=== PATIENT | male | born 1960 | race Caucasian/White ===

== ENCOUNTER → 2018-03-27 17:51 | Outpatient (REF) | payer OTHER, SELFPAY ==
[2018-03-27 18:53] LABS: Body Fluid Tot Nucleated Cells 349 /uL
[2018-03-27 19:12] LABS: Body Fluid Red Blood Cells < 1000 /uL
[2018-03-27 19:46] LABS: Body Fluid Appearance CLEAR; Body Fluid Clotted? NO CLOTS PRESENT; Body Fluid Color YELLOW
[2018-03-27 19:57] LABS: Mononuclear WBC Body Fluid 30 %; Polynuclear WBC Body Fluid 64 %
[2018-03-27 20:17] LABS: Other Cells Body Fluid 6 %
== END ==
LOC: LAB 17:51
PROVIDERS: Visit Provider Orthopaedic Surgery
DX: M25.462 Effusion, left knee (principal); M23.42 Loose body in knee, left knee
CPT/HCPCS: 87070; 87075; 87205; 89051; 89060

== ENCOUNTER → 2018-04-16 09:43 | Outpatient (CLI) | payer OTHER, SELFPAY ==
--- NOTE | 2018-04-16 | DI.MRI.S_ITS ---
PROCEDURE: MR KNEE LT WO CON INDICATIONS: PAIN IN LEFT KNEE TECHNIQUE: Noncontrast sagittal PD fast spin echo and T2 fast spin echo with fat saturation, sagittal 3-D FLASH with fat saturation; coronal T1 spin echo and PD fast spin echo with fat saturation, and axial PD fast spin echo with fat saturation through the knee. COMPARISON: None. FINDINGS: Image quality: Excellent. Menisci: There is peripheral displacement of medial meniscus bowing medial collateral ligament. Subtle signal abnormality involving posterior horn of medial meniscus is seen extending to inferior articulating surface suspicious for subtle oblique tear involving posterior horn medial meniscus. There is no evidence of focal lateral meniscal tear. The meniscal root ligaments appear intact. Cruciate ligaments: The anterior and posterior cruciate ligaments appear intact. Medial structures: The medial collateral ligament appears intact. The posterior oblique ligament, semimembranosus tendon insertions, oblique popliteal ligament, and meniscocapsular junction appear intact. Visualized portions of the pes anserinus tendons appear normal. No abnormal bursal fluid. Lateral structures: The lateral collateral ligament, long and short heads of the biceps femoris tendon appear intact. The popliteus tendon appears normal; the popliteofibular ligament appears intact. The posterosuperior and anteroinferior popliteomeniscal fascicles appear intact. The arcuate and fabellofibular ligaments appear intact, on either side of the lateral inferior geniculate artery. Iliotibial band appears normal. Anterior structures: The quadriceps tendon appears intact. Tendinosis involving distal patellar tendon near its tibial insertion is seen. No evidence of patella tendon rupture. Patellar alignment is normal. No femoral trochlear dysplasia or ventral trochlear prominence. No edema in the infrapatellar fat pad. 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 Moderate chondromalacia patella involving apex and lateral facet of patella cartilage is also seen. Joint space: There is moderate amount of joint effusion, no gross loose body. No Lozano's cyst. Normal appearing synovial plicae are incidentally noted. IMPRESSION: 1. 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 No fracture or dislocation. Moderate chondromalacia patella as above. Moderate amount of joint effusion, no gross loose body. 2. Suggestion of subtle focal oblique tear involving posterior horn of medial meniscus extending to inferior articulating surface. No evidence of focal lateral meniscal tear. Peripheral displacement of medial meniscus bowing medial collateral ligament. 3. Tendinosis involving distal patellar tendon near its insertion on proximal tibia. No evidence of patella tendon rupture. 4. Cruciate ligaments are intact. Dictated by: Raul Crandall M.D. on 04/16/2018 at 11:53 Approved by: Raul Crandall M.D. on 04/16/2018 at 12:00
== END ==
PROVIDERS: PCP Family Medicine; Visit Provider Orthopaedic Surgery
DX: M25.562 Pain in left knee (principal); M17.12 Unilateral primary osteoarthritis, left knee; M22.42 Chondromalacia patellae, left knee; M25.462 Effusion, left knee
CPT/HCPCS: 73721

== ENCOUNTER → 2019-03-13 19:17 | Outpatient (CLI) | payer OTHER, SELFPAY ==
[2019-03-13 19:38] LABS: Influenza A and B by PCR Rapid Negative (Negative)
== END ==
PROVIDERS: PCP Family Medicine; Visit Provider Physician Assistant
DX: R68.89 Other general symptoms and signs (principal)
CPT/HCPCS: 87400; 87502

== ENCOUNTER → 2020-11-28 12:51 | Outpatient (CLI) | payer OTHER, SELFPAY ==
--- NOTE | 2020-11-28 12:52 | DI.RAD.S_ITS ---
PROCEDURE: XR SCAPULA LT INDICATIONS: l shoulder pain TECHNIQUE: 3 views of the scapula were acquired. COMPARISON: None. FINDINGS: Bones: No fractures or dislocations. No suspicious bony lesions. Visualized ribs appear intact. Soft tissues: Overlying soft tissues appear normal. IMPRESSION: Mild AC joint osteoarthritis. No trauma found. Dictated by: Andrzej Wolfe M.D. on 11/28/2020 at 13:48 Approved by: Andrzej Wolfe M.D. on 11/28/2020 at 13:48
--- NOTE | 2020-11-28 12:52 | DI.RAD.S_ITS ---
PROCEDURE: XR SHOULDER LT MIN 2V INDICATIONS: Shoulder pain TECHNIQUE: 3 views of the shoulder were acquired. COMPARISON: None. FINDINGS: Bones: No fractures or dislocations. No suspicious bony lesions. Visualized ribs appear intact. Soft tissues: No suspicious soft tissue calcifications. IMPRESSION: Mild arthritic change at the AC joint. No fracture found. No subluxation or dislocation. Dictated by: Andrzej Wolfe M.D. on 11/28/2020 at 12:47 Approved by: Andrzej Wolfe M.D. on 11/28/2020 at 12:48
--- NOTE | 2020-11-28 13:45 | DI.RAD.S_ITS ---
PROCEDURE: XR CHEST 2V INDICATIONS: shortness of breath TECHNIQUE: 2 views of the chest were acquired. COMPARISON: None. FINDINGS: Surgical changes and devices: None. Lungs and pleura: Lungs are clear. No pleural effusions or pneumothorax. Mediastinum: Mediastinal contours are normal. Heart size is normal. Bones and chest wall: No suspicious bony abnormalities. Soft tissues appear unremarkable. IMPRESSION: Normal for age, source of current shortness of breath symptoms is not seen. Dictated by: Andrzej Wolfe M.D. on 11/28/2020 at 13:57 Approved by: Andrzej Wolfe M.D. on 11/28/2020 at 13:57
--- NOTE | 2020-11-28 13:45 | DI.RAD.S_ITS ---
PROCEDURE: XR RIBS LT 2V INDICATIONS: shortness of breath TECHNIQUE: 2 views of the left ribs were acquired. COMPARISON: [facility], CR, XR CHEST 2V, 11/28/2020, 13:43. FINDINGS: Surgical changes and devices: None. Bones and chest wall: No fractures or dislocations. No suspicious bony lesions. Overlying soft tissues appear unremarkable. Lungs and pleura: The visualized lung appears clear. No pleural effusions or pneumothorax are visible. IMPRESSION: No acute disease, source of shortness of breath is not identified. No rib trauma found. No pneumothorax. Depending on the clinical status follow-up by CT scanning may become necessary. Dictated by: Andrzej Wolfe M.D. on 11/28/2020 at 13:54 Approved by: Andrzej Wolfe M.D. on 11/28/2020 at 13:57
== END ==
PROVIDERS: PCP Internal Medicine; Referring Provider Physician Assistant; Visit Provider Physician Assistant
DX: M25.512 Pain in left shoulder (principal); R06.02 Shortness of breath; M19.012 Primary osteoarthritis, left shoulder
CPT/HCPCS: 71046; 71100; 73010; 73030

== ENCOUNTER → 2022-12-01 07:33 | Outpatient (CLI) | payer OTHER, SELFPAY ==
--- NOTE | 2022-12-01 | DI.RAD.S_ITS ---
PROCEDURE: XR SHOULDER LT MIN 2V INDICATIONS: Pain in left shoulder TECHNIQUE: 3 views of the shoulder were acquired. COMPARISON: [facility], CR, XR RIBS LT 2V, 11/28/2020, 13:43. [facility], CR, XR CHEST 2V, 11/28/2020, 13:43. [facility], CR, XR SHOULDER LT MIN 2V, 11/28/2020, 12:56. FINDINGS: Bones: No fractures or dislocations. No suspicious bony lesions. Visualized ribs appear intact. Mild AC joint hypertrophy. Soft tissues: No suspicious soft tissue calcifications. IMPRESSION: No acute osseous abnormality. If symptoms persist, follow-up radiographs and/or CT or MRI may be helpful for further evaluation. Dictated by: Aubrey Bhatt M.D. on 12/01/2022 at 10:00 Approved by: Aubrey Bhatt M.D. on 12/01/2022 at 10:03
== END ==
PROVIDERS: PCP Physician Assistant; Referring Provider Physician Assistant; Visit Provider Physician Assistant
DX: M25.512 Pain in left shoulder (principal)
CPT/HCPCS: 73030

== ENCOUNTER → 2022-12-03 08:41 | Outpatient (CLI) | payer OTHER, SELFPAY ==
--- NOTE | 2022-12-03 09:12 | DI.MRI.S_ITS ---
PROCEDURE: MR SHOULDER LT WO CON INDICATIONS: CHRONIC LEFT SHOULDER PAIN TECHNIQUE: Noncontrast oblique coronal T2 fast spin echo with fat saturation, oblique sagittal T1 spin echo and T2 fast spin echo with fat saturation, axial T1 spin echo and T2 fast spin echo with fat saturation through the shoulder. COMPARISON: [facility], CR, XR SHOULDER LT MIN 2V, 12/01/2022, 7:40. FINDINGS: Image quality: Excellent. Rotator cuff: Mild T2 signal elevation diffusely throughout the supraspinatus and infraspinatus tendons at the humeral insertion sites extending the musculotendinous junctions, indicating tendinopathy. High-grade articular surface and intrasubstance tearing of the mid/anterior supraspinatus tendon at the humeral insertion site extending to the musculotendinous junction measuring 10 mm anteroposterior. Low-grade intrasubstance tearing of the mid/posterior supraspinatus tendon as well as the mid and anterior infraspinatus tendon at the humeral insertion site extending to the musculotendinous junction. Subscapularis and teres minor tendons are intact. No rotator cuff atrophy. Bones and bursae: No bone marrow contusions or fractures. Moderate acromioclavicular joint degeneration. The acromion demonstrates conventional anatomy, without an os acromiale. No pathologic subacromial-subdeltoid or subcoracoid bursal fluid is present. Capsule and soft tissues: There is undercutting of the mid posterior labrum. The long head of the biceps tendon demonstrates normal location and partial-thickness tearing. The rotator interval appears normal, without fibrosis. The coracohumeral ligament is normal in thickness. IMPRESSION: 1. Supraspinatus and infraspinatus tendinopathy with superimposed high-grade and partial-thickness low-grade tearing as described above. 2. Acromioclavicular joint osteoarthritis. 3. Partial thickness biceps tendon tearing. 4. Possible posterior labral tearing. Dictated by: Diane Murphy M.D. on 12/04/2022 at 11:01 Approved by: Diane Murphy M.D. on 12/04/2022 at 11:02
== END ==
PROVIDERS: PCP Physician Assistant; Referring Provider Physician Assistant; Visit Provider Physician Assistant
DX: M75.112 Incomplete rotator cuff tear or rupture of left shoulder, not specified as traumatic (principal); S46.112A Strain of muscle, fascia and tendon of long head of biceps, left arm, initial encounter; M19.012 Primary osteoarthritis, left shoulder; M25.512 Pain in left shoulder
CPT/HCPCS: 73221

== ENCOUNTER → 2023-06-21 | Outpatient (CLI) | payer OTHER, SELFPAY ==
--- NOTE | 2023-06-21 14:44 | DI.MRI.S_ITS ---
PROCEDURE: MR SHOULDER RT WO CON INDICATIONS: RIGHT SHOULDER PAIN TECHNIQUE: Noncontrast oblique coronal T2 fast spin echo with fat saturation, oblique sagittal T1 spin echo and T2 fast spin echo with fat saturation, axial T1 spin echo and T2 fast spin echo with fat saturation through the shoulder. COMPARISON: [facility], MR, MR SHOULDER LT WO CON, 12/03/2022, 8:55. FINDINGS: Image quality: Excellent. Rotator cuff: There is high-grade partial-thickness tear of the distal supraspinatus tendon at the humeral attachment (series 8, image 13-15). There is intermediate-grade partial-thickness tear of the posterior fibers of the distal subscapularis tendon involving both articular and bursal surfaces, as well as the footprint. Low-grade partial-thickness tear of the infraspinatus tendon and mild tendinosis. There is no supraspinatus, infraspinatus or subscapularis muscle atrophy. There is high-grade partial-thickness or full-thickness tear of the distal teres minor tendon and humeral attachment. No tendon retraction. There is severe teres minor muscle atrophy. Bones and bursae: No bone marrow contusions or fractures. There is moderate acromioclavicular and glenohumeral joint degeneration. The acromion demonstrates conventional anatomy, without an os acromiale. Small subacromial-subdeltoid bursal fluid is present. Capsule and soft tissues: There is degenerative labral fraying. Low-grade tendinosis of the long head of the biceps tendon which demonstrates normal location and morphology. There is fluid collection and cystic change along the biceps tendon sheath suggesting tenosynovitis. The rotator interval appears normal, without fibrosis. The coracohumeral ligament is normal in thickness. There is edema of the posterior superficial the deltoid muscle with associated fluid collection, suggesting muscle strain. IMPRESSION: 1. High-grade partial-thickness tear of the supraspinatus tendon. 2. Intermediate-grade partial-thickness tear of the subscapularis tendon. 3. Low-grade partial-thickness tear of the infraspinatus tendon. 4. High-grade partial-thickness tear of the distal teres minor tendon. 5. Mild tendinosis and tenosynovitis of the long head of the biceps. 6. Moderate acromioclavicular and glenohumeral joint degeneration. 7. Deltoid muscle strain. 8. Severe teres minor muscle atrophy. The finding may be secondary to high-grade tendon or quadrilateral space syndrome. Dictated by: Tiago Kitchen M.D. on 06/21/2023 at 19:09 Approved by: Tiago Kitchen M.D. on 06/23/2023 at 9:40
== END ==
LOC: MRI 14:43
PROVIDERS: PCP Physician Assistant; Referring Provider Orthopaedic Surgery Sports Medicine; Visit Provider Orthopaedic Surgery Sports Medicine
DX: M75.111 Incomplete rotator cuff tear or rupture of right shoulder, not specified as traumatic (principal); M19.011 Primary osteoarthritis, right shoulder; S46.811A Strain of other muscles, fascia and tendons at shoulder and upper arm level, right arm, initial encounter; M65.811 Other synovitis and tenosynovitis, right shoulder; M25.511 Pain in right shoulder; R29.898 Other symptoms and signs involving the musculoskeletal system
CPT/HCPCS: 73221

== ENCOUNTER → 2024-01-21 15:04 | Outpatient (CLI) | payer OTHER, SELFPAY ==
--- NOTE | 2024-01-21 15:09 | DI.RAD.S_ITS ---
PROCEDURE: XR PELVIS 1-2V INDICATIONS: SPONDYLITIS TECHNIQUE: 2 view(s) of the pelvis acquired. COMPARISON: None. FINDINGS: Bones: No fractures or dislocations. No suspicious bony lesions. Nonuniform joint space narrowing and osteophytic lipping of the acetabuli. No evidence of sacroiliitis. Soft tissues: Visualized bowel gas pattern is normal. No suspicious soft tissue calcifications. Hernia repair. IMPRESSION: No evidence of sacroiliitis. Mild bilateral hip osteoarthritis. Dictated by: Shukri Baptiste M.D. on 01/21/2024 at 17:07 Approved by: Shukri Baptiste M.D. on 01/21/2024 at 17:07
== END ==
PROVIDERS: PCP Physician Assistant; Referring Provider Physician Assistant; Visit Provider Physician Assistant
DX: M79.10 Myalgia, unspecified site (principal); Z82.69 Family history of other diseases of the musculoskeletal system and connective tissue; M16.0 Bilateral primary osteoarthritis of hip
CPT/HCPCS: 72170

== ENCOUNTER → 2024-04-10 06:48 | Outpatient (CLI) | payer OTHER, SELFPAY ==
--- NOTE | 2024-04-10 06:49 | DI.ECHO.S_ITS ---
[facility] : : [id number] : : [facility] : : [place], : : [place] [address] : : Phone: [phone] Echocardiogram Report + + :Name: VICKI GILMORE Study Date: 04/10/2024 Height: 72 in : :[facility] ReadingLocation: Weight: 225 lb : : Gender: Male BSA: 2.2 m2 : :: 1960 Age: 63 yrs BP: 130/86 mmHg: :Reason For Study: IRREGULAR HEART RATE : :Ordering Physician: HOLLI, : :WEI Performed By: Peter Collins : :Referring: WEI RUBI : + + Interpretation Summary 1) Normal left ventricular thickness, size, wall motion, and systolic function (EF 55-60%). 2) Normal right ventricular size and function. 3) There is mild aortic regurgitation. 4) The aortic root is mildly dilated at 4.0cm. 5) No prior Echo available for comparison. Procedure: A two-dimensional transthoracic echocardiogram with color flow and Doppler was performed. The study quality was technically good. There is no prior echocardiogram noted for this patient. The patient was in normal sinus rhythm during the exam. Left Ventricle: The left ventricle is normal in size. There is normal left ventricular wall thickness. There is no ventricular septal defect visualized. The ejection fraction is estimated to be 55-60%. There are no focal wall motion abnormalities. Right Ventricle: The right ventricle is normal in size and function. Atria: The left atrial size is normal. The right atrium is moderately dilated. There is no Doppler evidence for an atrial septal defect. Mitral Valve: The mitral valve is normal in structure and function. There is trace mitral regurgitation. Aortic Valve: The aortic valve is trileaflet. The aortic valve opens well. There is no aortic valve stenosis. There is mild aortic regurgitation. Tricuspid Valve: The tricuspid valve is normal in structure and function. There is mild tricuspid regurgitation. The right ventricular systolic pressure is estimated to be at least 34 mmHg based on an estimated right atrial pressure of 8 mm Hg. Pulmonic Valve: The pulmonic valve is normal in structure and function. There is trace pulmonic regurgitation. Great Vessels: The aortic root is mildly dilated. The dimensions of the ascending aorta are normal. The pulmonary artery is normal size. The IVC is dilated (diameter is greater than 2.1 cm) yet it collapses greater than 50% with a sniff. This suggests a right atrial pressure of 8 mm Hg. Pericardium/ Pleura There is no pericardial effusion. There is no pleural effusion. MMode/2D Measurements & Calculations LVIDd: 5.6 cm AoV Openin.6 cm LVIDs: 4.2 cm LVOT diam: 2.4 cm IVSd: 0.85 cm Ao root diam: 4.0 cm LVPWd: 0.93 cm asc Aorta Diam: 3.1 cm LV vogt. diameter/BSA (cm/m^2): 2.5 Ao Arch Diam (Prox Trans): 2.7 cm LV sys. diameter/BSA (cm/m^2): 1.9 FS: 26.0 % EPSS: 0.70 cm LA A2 area: 23.8 cm2 RA long axis: 6.9 cm LA A4 area: 22.2 cm2 RA area: 31.7 cm2 LA length (vol): 6.2 cm RA vol: 123.2 ml LA vol: 72.7 ml RA : 55.0 ml/m2 LA vol index: 32.5 ml/m2 RVD1 (basal): 3.9 cm IVC diam: 2.4 cm RVD2 (mid): 3.5 cm TAPSE: 3.0 cm Doppler Measurements & Calculations Ao V2 max: 112.9 cm/sec LVOT Max Mack: 96.1 cm/sec Ao V2 mean: 80.7 cm/sec LV V1 max P.7 mmHg Ao V2 VTI: 25.5 cm LV V1 VTI: 21.2 cm Ao max P.1 mmHg Ao mean P.9 mmHg VALERIO(I,D): 3.7 cm2 MV E max mack: 54.0 cm/sec VALERIO(V,D): 3.8 cm2 MV A max mack: 59.1 cm/sec VALERIO indexed to BSA (cm^2/m^2): 1.7 MV E/A: 0.91 sev ratio: 0.83 Med Peak E' Mack: 8.3 cm/sec E/E' med: 6.5 Lat Peak E' Mack: 6.7 cm/sec E/E' lat: 8.1 E/e' average: 7.3 MV dec time: 0.16 sec TR max mack: 256.4 cm/sec TR max P.3 mmHg PA V2 max: 67.7 cm/sec SV(LVOT): 94.3 ml PA V2 mean: 47.8 cm/sec PA mean P.0 mmHg PA pr(Accel): 32.8 mmHg Reading Physician:04:23 PM
== END ==
LOC: ECHO 06:48
PROVIDERS: PCP Physician Assistant; Referring Provider Internal Medicine Cardiovascular Disease; Visit Provider Internal Medicine Cardiovascular Disease
DX: I49.9 Cardiac arrhythmia, unspecified (principal); I08.2 Rheumatic disorders of both aortic and tricuspid valves; I77.810 Thoracic aortic ectasia
CPT/HCPCS: 93306

== ENCOUNTER → 2024-10-22 11:22 | Outpatient (CLI) | payer OTHER, SELFPAY ==
--- NOTE | 2024-10-22 11:23 | DI.CT.S_ITS ---
PROCEDURE: CT IVP A/P W/WO INDICATIONS: GROSS HEMATURIA/ANTICOAGULATED TECHNIQUE: Optional 5 mm thick noncontrast images acquired from the diaphragm to the symphysis pubis. After the administration of intravenous contrast, 5 mm thick images acquired from the diaphragm to the symphysis pubis after a 10-minute delay. 2 mm thick coronal and sagittal reformats were then performed of the kidneys and ureters. For radiation dose reduction, the following was used: automated exposure control, adjustment of mA and/or kV according to patient size. COMPARISON: None. FINDINGS: Image quality: Diagnostic. Kidneys and Ureters: Both kidneys are normal in size, without hydronephrosis or nephrolithiasis. No perinephric fat stranding. There is normal bilateral renal enhancement. Renal calyces appear normal in morphology when filled with contrast. Opacified portions of both ureters demonstrate normal caliber. Benign bilateral renal cysts. Bladder: Bladder wall thickness is normal. No calcified bladder stones. Right lateral bladder wall diverticulum. This measures 4.5 x 2.1 cm. OTHER: Lower chest: Unremarkable. Liver: No solid mass. Gallbladder: No radiopaque gallstones or wall thickening. Biliary ducts: No biliary dilation. Pancreas: No ductal dilation. Spleen: Size is within normal limits. Adrenal Glands: No adrenal nodules. Stomach and Bowel: Normal colonic caliber, without significant wall thickening. Colonic diverticulosis without evidence of diverticulitis. Peritoneum: No abnormal intraperitoneal fluid. No free air. Ventral Wall: Small umbilical hernia containing fat. Abdominal Nodes: No retroperitoneal or mesenteric adenopathy by size criteria. Vessels: Aorta and inferior vena cava are normal in size. PELVIS: Pelvic Organs: Unremarkable. Pelvic Nodes: No enlarged lymph nodes. Miscellaneous: No inguinal hernias are seen. Right inguinal hernia repair. Bones: No aggressive osseous abnormality. Degenerative disc disease of the lumbar spine. IMPRESSION: No nephrolithiasis or filling defects within the opacified renal collecting system or ureters. Right lateral bladder wall diverticulum measuring 4.5 x 2.1 cm. This usually indicates chronic outlet obstruction. Dictated by: Shukri Baptiste M.D. on 10/22/2024 at 16:30 Approved by: Shukri Baptiste M.D. on 10/22/2024 at 16:34
[2024-10-22 11:46] LABS: Add Manual Diff / Slide Review NO; Basophils Absolute Auto 100 /uL (0-100); Basophils Percent Auto 1.2 % (0-2); Eosinophils Absolute Auto 500 /uL (0-450); Eosinophils Percent Auto 7.1 % (2-4); Hematocrit 40.7 % (41-53); Hemoglobin 14.2 g/dL (13.5-17.5); Lymphocytes Absolute Auto 1800 /uL (1100-4500); Lymphocytes Percent Auto 24.8 % (25-40); Mean Corpuscular HGB Conc 34.8 % (30-36); Mean Corpuscular Hemoglobin 32.4 PG (26-34); Monocytes Absolute Auto 400 /uL (0-900); Monocytes Percent Auto 5.1 % (3-14); Neutrophils Absolute Auto 4500 /uL (1500-7000); Neutrophils Percent Auto 61.8 % (50-75); Platelet Count 202 X10^3/uL (150-400); Red Blood Cell Count 4.37 X10^6/uL (4.5-5.9); Red Cell Distribution Width 14.6 % (11.6-14.8); White Blood Cell Count 7.2 X10^3/uL (4.5-11.0)
[2024-10-22 12:01] LABS: Alanine Aminotransferase 24 IU/L (<50); Albumin 4.5 g/dL (3.5-5.0); Albumin Globulin Ratio 1.7 (1.0-2.8); Alkaline Phosphatase 49 U/L (38-126); Aspartate Aminotransferase 30 IU/L (17-59); BUN Creatinine Ratio 22.3 (6-22); Bilirubin Total 0.5 mg/dL (0.2-1.3); Blood Urea Nitrogen 21 mg/dL (9-20); Calcium 9.1 mg/dL (8.4-10.2); Carbon Dioxide 26 mmol/L (22-32); Chloride 107 mmol/L (98-107); Estimated Glomerular Filt Rate > 60 mL/min (>60); Globulin 2.6 g/dL (1.7-4.1); Glucose 96 mg/dL (70-99); HEMOLYSIS 15 (0-50); Potassium 4.7 mmol/L (3.4-5.1); Sodium 144 mmol/L (137-145); Total Protein 7.1 g/dL (6.3-8.2)
== END ==
PROVIDERS: PCP Physician Assistant; Referring Provider Physician Assistant; Visit Provider Physician Assistant
DX: I82.812 Embolism and thrombosis of superficial veins of left lower extremity (principal); R31.0 Gross hematuria; N32.3 Diverticulum of bladder; N28.1 Cyst of kidney, acquired; K57.90 Diverticulosis of intestine, part unspecified, without perforation or abscess without bleeding; K42.9 Umbilical hernia without obstruction or gangrene; M51.369 Other intervertebral disc degeneration, lumbar region without mention of lumbar back pain or lower extremity pain; Z79.01 Long term (current) use of anticoagulants
CPT/HCPCS: 36415; 74178; 80053; 85025; Q9967